=== PATIENT | male | born 1955 | race Caucasian/White ===

== ENCOUNTER → 2022-03-16 | Outpatient (CLI) | payer OTHER, SELFPAY | END | disposition home or self-care (01) | LOC: PSN 06:17 | PROVIDERS: PCP Family Medicine; Visit Provider Internal Medicine Cardiovascular Disease | DX: I47.2 Ventricular tachycardia (principal); I10 Essential (primary) hypertension | CPT/HCPCS: 93225; 93226 ==

== ENCOUNTER → 2022-03-21 | Outpatient (CLI) | payer OTHER, SELFPAY ==
--- NOTE | 2022-03-21 06:22 | ECHOCS_ITS ---
Reason For Study: Arrhythmia Procedure This was a 2D Doppler, Color Flow transthoracic echocardiogram. The study was technically difficult. Contrast injection was performed. Exam performed in department. Left Ventricle Normal LV size. Left ventricular systolic function is normal. The estimated ejection fraction is 65 %. Normal diastology for age. No regional wall motion abnormalities noted. Right Ventricle Normal RV size. Normal systolic function. Atria Normal left atrium. Normal right atrium. Mitral Valve Normal mitral valve. Tricuspid Valve Normal tricuspid valve. Aortic Valve The aortic valve is not well visualized. Pulmonic Valve The pulmonic valve is not well visualized. Great Vessels Normal aortic root. The pulmonary artery is normal size. Normal inferior vena cava. Pericardium/Pleural No pericardial effusion. Medication 22 gauge I.V. with prn adaptor inserted into right arm. Diluted definity 1.5ml given slow IV push to enhance endocardial definition. MMode/2D Measurements & Calculations LVIDd: 5.4 cm IVSd: 1.0 cm LA dimension: 3.4 cm LVIDs: 3.8 cm LVPWd: 1.2 cm RVDd: 2.6 cm FS: 29.1 % LAV(MOD-bp): 50.8 ml LA A4 area: 18.2 cm2 RA A4 area: 11.9 cm2 LAV(MOD-bp) Indexed: 22.7 ml/m2 LAV(MOD-sp2): 49.5 ml LAV(MOD-sp4): 48.5 ml Time Measurements MV dec time: 0.25 sec Doppler Measurements & Calculations MV E max nick: 85.7 cm/sec Lat Peak E' Nick: 10.2 cm/sec Med Peak E' Nick: 8.5 cm/sec MV A max nick: 73.2 cm/sec E/E' lat: 8.4 E/E' med: 10.1 MV E/A: 1.2 MV V2 max: 91.7 cm/sec MV P1/2t max nick: 91.7 cm/sec Ao V2 max: 154.9 cm/sec MV max P.4 mmHg MV P1/2t: 72.6 msec Ao max P.6 mmHg MV V2 mean: 54.9 cm/sec MV dec slope: 369.7 cm/sec2 MV mean P.4 mmHg MV V2 VTI: 20.0 cm MVA(P1/2t): 3.0 cm2 LV V1 max: 125.9 cm/sec PA V2 max: 114.6 cm/sec LV V1 max P.3 mmHg ECHO/Echo Complete W/ Contrast Interpretation Summary Normal LV size. Left ventricular systolic function is normal. The estimated ejection fraction is 65 %. Normal diastology for age. Contrast injection was performed. Ordering Physician: Jeff Alvarez Referring Physician: Masoud Clark Performed By: Axel Guillen RCS
--- NOTE | 2022-03-21 11:44 | STRESSREP ---
Stress Test Report Exercise myocardial perfusion stress test. 66-year-old man with a history of wide-complex tachycardia. Stress protocol: Resting KG demonstrates normal sinus rhythm with a rate of 76 bpm normal intervals are noted resting blood pressure is 138/80 mmHg. Patient exercised according to regular Negro protocol for total duration of 7 minutes and 46 seconds. Patient completed 1 minute and 46 seconds into stage III of the Negro protocol the maximum heart rate attained was 146 bpm which was 94% of max impact at heart rate the maximum workload was 10.1 metabolic equivalents. Patient maintained sinus rhythm throughout the recording. At rest there were no ST or T wave changes noted to suggest ischemia and at peak exercise upsloping ST changes were noted with did not meet the criteria for ischemia. No clinical angina was noted. The test was terminated due to leg fatigue. The peak blood pressure was 182/82 mmHg. Myocardial perfusion protocol. 14.8 mCi of technetium 99m sestamibi was injected at rest. The patient then exercised according to the regular Negro protocol for 10.1 metabolic equivalents. At peak exercise 44.5 mCi of technetium 99m sestamibi was injected stress images were obtained stress and rest images were reconstructed and compared in the short axis vertical long and horizontal long axis. Gated images were also obtained per Perfusion SPECT analysis: Review of the stress images demonstrate normal uptake of tracer noted in all areas of the myocardium. The resting images similarly demonstrate normal uptake of tracer noted in all areas of the myocardium. No areas of reversibility are noted suggest ischemia and no previous infarct is noted. Gated SPECT analysis: The gated ejection fraction is 62%. Conclusion: Normal exercise myocardial perfusion stress test at a high workload. Preserved ejection fraction. No arrhythmias noted.
== END | disposition home or self-care (01) ==
LOC: CVS 06:16
PROVIDERS: PCP Family Medicine; Referring Provider Internal Medicine Cardiovascular Disease; Visit Provider Internal Medicine Cardiovascular Disease
DX: I47.2 Ventricular tachycardia (principal); I10 Essential (primary) hypertension
CPT/HCPCS: 78452; 93017; 93306; A9500; Q9957; A4216; C8929